=== PATIENT | female | born 1960 | race Caucasian/White ===

== ENCOUNTER 2018-08-20 00:46 | Emergency (ER) | payer OTHER ==
[~2018-08-20] VITALS: Ht 170.2 cm; Wt 95.3 kg
[~2018-08-20 00:46] MED LIST: AUGMENTIN 875875 MG PO; BACTROBAN CREAM30 G1 TOP; CEFTIN500 MG PO; DESYREL150 MG PO; FIRST-OMEPR2 MG/1 ML PO; FLEXERIL; HYDROXYZINE HCL50 MG PO; IMITREX 25 MG T25 M1; KEFLEX500 MG PO; MEDROLDOSEPACK PO; METOCLOPRAMIDE 55 M1 PO; OXYCODONE HCL 55 MG PO; PERCOCET; PHENERGAN 25 MG25 M1 PO; PHENERGAN 25 MG25 M1 RECTAL; PREDNISONE 10 M10 M1 PO; PROZAC 20 MG20 M1; PROZAC 20 MG20 MG PO; REGLAN 10 MG TA10 MG PO; TRAMADOL 50 MG50 MG; TRANSDERM-SCOP1 EACH TD; VALIUM10 MG PO; ZOFRAN4 MG PO
[2018-08-20] MEDS ORDERED: AMITIZA 24 MCG24 MCG PO (01:06)
[2018-08-20] MEDS ORDERED: ZANTAC 150MG T150 MG PO (01:06)
[2018-08-20] MEDS ORDERED: OXCARBAZEPINE300 MG PO (01:06)
[2018-08-20] MEDS ORDERED: FLONASE 0.05%50 MCG NASAL (01:07)
[2018-08-20] MEDS ORDERED: HYDROXYZINE HCL25 M1 PO (01:07)
[2018-08-20] MEDS ORDERED: TOPROL XL25 MG PO (01:08)
[2018-08-20] MEDS ORDERED: AMITRIPTYLINE H25 M2 PO (01:08)
[2018-08-20] MEDS ORDERED: LEVSIN0.125 MG PO (01:09)
[2018-08-20] MEDS ORDERED: LASIX 20 MG TAB20 MG PO (01:09)
[2018-08-20] MEDS ORDERED: TYLENOL EXTRA500 MG PO (01:09)
[2018-08-20] MEDS ORDERED: IMITREX5 MG NASAL (01:11)
[2018-08-20 03:42] VITALS: BP 129/71
== END 2018-08-20 03:43 | disposition home or self-care (01) ==
LOC: M.ERS 00:46
DX: L50.9 Urticaria, unspecified (principal); N80.9 Endometriosis, unspecified; M54.9 Dorsalgia, unspecified; M79.7 Fibromyalgia; G89.29 Other chronic pain; Z91.041 Radiographic dye allergy status; Z88.2 Allergy status to sulfonamides; Z88.6 Allergy status to analgesic agent; Z90.49 Acquired absence of other specified parts of digestive tract; Z90.710 Acquired absence of both cervix and uterus